=== PATIENT | female | born 1955 | race Native Hawaiian/Other Pacific Islander ===

== ENCOUNTER 2016-06-11 09:39 | Outpatient (CLI) | payer BC | END 2016-06-11 22:58 | disposition home or self-care (01) | LOC: MAMMO 09:39 | DX: Z12.31 Encounter for screening mammogram for malignant neoplasm of breast (principal) | CPT/HCPCS: G0202-TC ==

== ENCOUNTER 2018-08-28 21:19 | Emergency (ER) | payer BC ==
[~2018-08-28] VITALS: Ht 170.2 cm; Wt 113.4 kg
[2018-08-28 22:46] VITALS: BP 140/66; TEMP 98.3
== END 2018-08-28 22:48 | disposition home or self-care (01) ==
LOC: ED 21:19
DX: S60.454A Superficial foreign body of right ring finger, initial encounter (principal); S60.444A External constriction of right ring finger, initial encounter; W49.04XA Ring or other jewelry causing external constriction, initial encounter
CPT/HCPCS: 99282

== ENCOUNTER 2018-09-12 14:46 | Outpatient (CLI) | payer BC | END 2018-09-12 22:43 | disposition home or self-care (01) | LOC: MAMMO 14:46 | DX: Z12.31 Encounter for screening mammogram for malignant neoplasm of breast (principal); N64.59 Other signs and symptoms in breast ==

== ENCOUNTER 2019-09-18 10:59 | Outpatient (CLI) | payer BC | END 2019-09-18 21:47 | disposition home or self-care (01) | LOC: MAMMO 10:59 | DX: Z12.31 Encounter for screening mammogram for malignant neoplasm of breast (principal) ==

== ENCOUNTER 2020-06-21 22:16 | Emergency (ER) | payer BC ==
[~2020-06-21] VITALS: Ht 170.2 cm; Wt 113.4 kg
[2020-06-21 23:22] LABS: PLATELET COUNT 137 K/uL (152-353)
[2020-06-21 23:40] LABS: POTASSIUM 3.4 mmol/L (3.6-5.2)
[2020-06-22 04:12] VITALS: BP 151/68; TEMP 98.7
== END 2020-06-22 04:12 | disposition home or self-care (01) ==
LOC: ED 22:16
PROVIDERS: Emergency Medicine Emergency Medical Services
DX: J18.9 Pneumonia, unspecified organism (principal); E87.6 Hypokalemia; R11.0 Nausea; Z03.818 Encounter for observation for suspected exposure to other biological agents ruled out
CPT/HCPCS: 36415; 80053; 81000; 82150; 83690; 85027; 87502; 87635; 96360; 96365; 96375; 99284; J0696; J1885; J2270; J2405; J3490; U0003

== ENCOUNTER 2021-11-07 14:22 | Outpatient (CLI) | payer BC | END 2021-11-07 20:15 | disposition home or self-care (01) | LOC: MAMMO 14:22 | PROVIDERS: ATTEND Physician Assistant | DX: Z12.31 Encounter for screening mammogram for malignant neoplasm of breast (principal) ==

== ENCOUNTER 2022-01-23 15:25 | Outpatient (CLI) | payer BC | END 2022-01-23 18:53 | disposition home or self-care (01) | LOC: US 15:25 | PROVIDERS: ATTEND Physician Assistant | DX: M79.89 Other specified soft tissue disorders (principal) ==